=== PATIENT | female | born 1930 | race African-American/Black ===

== ENCOUNTER 2021-11-22 13:19 | Emergency (ER) | payer OTHER ==
[~2021-11-22] VITALS: Ht 167.6 cm; Wt 93.0 kg
[2021-11-22 17:00] VITALS: BP 144/68
--- NOTE | 2021-11-23 07:49 | EKG ---
[address] [place] [address] ELECTROCARDIOGRAM REPORT Name: YUSRAKINGSLEYKENDELL Room #: DEP Roselyn#: [id number] Admission: 11/22/21 Attend Phys: Discharge: 11/22/21 Date of : [birth year] Report #: [id number] [facility] ED Test Date: 2021-11-22 Test Time: 14:38:10 Pat Name: KENDELL MENG Department: Room: Gender: Telemarketing Fundraiser: : [id number] Requested By: Sridhar Spencer Order Number: [id number] MD: Ruddy Blake Measurements Intervals [place] Rate: 57 P: 80 MT: 155 QRS: 0 QRSD: 84 T: 58 QT: 499 QTc: 486 Interpretive Statements Sinus rhythm Anteroseptal infarct, age indeterminate Prolonged QT interval No previous ECG available for comparison Electronically Signed On 11-23-2021 7:49:04 [employer] by Ruddy Blake [email or web address] <ELECTRONICALLY SIGNED> By: Ruddy Blake MD, [facility] 11/23/21 0749 [id number] 1438 Ruddy Blake MD, FACC /EPI
== END 2021-11-22 17:02 ==
LOC: ER 13:19
DX: J44.9 Chronic obstructive pulmonary disease, unspecified (principal); Z71.1 Person with feared health complaint in whom no diagnosis is made; F02.80 Dementia in other diseases classified elsewhere, unspecified severity, without behavioral disturbance, psychotic disturbance, mood disturbance, and anxiety